=== PATIENT | female | born 1935 | race Caucasian/White ===

== ENCOUNTER 2018-03-20 11:52 | Emergency (ER) | payer BC ==
[~2018-03-20] VITALS: Ht 157.5 cm; Wt 49.0 kg
--- NOTE | 2018-03-20 12:15 | NUR ---
BIB [id number], GLF, LAC ON LT EYEBROW & LT CHEEK ABRASION. -KO, -NECK/BACK PAIN. PT AOX4, VSS, RESPIRATIONS EVEN AND UNLABORED ON RA. SKIN WARM, DRY, INTACT. DENIES SOB, DIZZINESS, WEAKNESS, N/V. PAIN LEVEL 4/10. ACCOMPANIED BY FAMILY. READY FOR EVAL. WILL CONT TO MONITOR.
[2018-03-20] MEDS ORDERED: TDAP [DIPH/PERTUSSIS/TET] 0.5 ML VIAL IM ONE ×2 (12:30→12:31)
[2018-03-20] MEDS ORDERED: ACETAMINOPHEN 325 MG TABLET PO ONE (12:30)
[2018-03-20] MEDS ORDERED: ACETAMINOPHEN 325 MG TABLET ONE (12:31)
--- NOTE | 2018-03-20 12:52 | NUR ---
PT TAKEN TO CT VIA [facility]
[2018-03-20] MEDS ORDERED: LIDOCAINE 1%-EPI 1:100,000 20 ML VIAL ONE (12:56)
[2018-03-20] MEDS ORDERED: LIDOCAINE 1%-EPI 1:100,000 20 ML VIAL TP ONE (13:00)
--- NOTE | 2018-03-20 13:02 | NUR ---
PT BACK FROM CT, RESTING COMFORTABLY IN BED
--- NOTE | 2018-03-20 13:13 | NUR ---
ASSISTED PT TO WALK TO BATHROOM
--- NOTE | 2018-03-20 13:45 | NUR ---
PT RESTING COMFORTABLY WITH FAMILY MEMBER AT BEDSIDE. NO COMPLAINTS AT THIS TIME. VSS.
--- NOTE | 2018-03-20 14:33 | NUR ---
Patient discharged to home in stable condition. Written and verbal after care instructions given. Patient verbalizes understanding of instruction.
[2018-03-20 14:34] VITALS: BP 139/76
== END 2018-03-20 14:34 | disposition home or self-care (01) ==
LOC: ER 11:54
DX: S01.112A Laceration without foreign body of left eyelid and periocular area, initial encounter (principal); M25.512 Pain in left shoulder; M81.0 Age-related osteoporosis without current pathological fracture; Z98.890 Other specified postprocedural states; W18.09XA Striking against other object with subsequent fall, initial encounter; Y93.89 Activity, other specified; Y92.89 Other specified places as the place of occurrence of the external cause; Y99.8 Other external cause status
CPT/HCPCS: 70450-TC; 72125-TC; 73030-TC; 90715; A4606; A6402; A6403; J3490; Z7610